=== PATIENT | female | born 1945 | race Caucasian/White ===

== ENCOUNTER 2019-04-22 12:36 | Outpatient (CLI) | payer MEDICARE | END 2019-04-22 23:59 | disposition home or self-care (01) | LOC: CARD DIAG 12:36 | PROVIDERS: ATTEND Family Medicine | DX: I08.0 Rheumatic disorders of both mitral and aortic valves (principal); R53.83 Other fatigue; R63.4 Abnormal weight loss; R10.9 Unspecified abdominal pain; K62.5 Hemorrhage of anus and rectum; K57.90 Diverticulosis of intestine, part unspecified, without perforation or abscess without bleeding; K55.9 Vascular disorder of intestine, unspecified; E78.5 Hyperlipidemia, unspecified; Z76.89 Persons encountering health services in other specified circumstances | CPT/HCPCS: 93306; 93975 ==